=== PATIENT | male | born 1975 | race Caucasian/White ===

== ENCOUNTER 2020-12-24 10:58 | Day surgery (SDC) | payer OTHER ==
[2020-12-20 12:47] VITALS: BMI 32.9
[2020-12-24] MEDS ORDERED: LIDOCAINE HCL/PF 2% SDV 5ML VIAL ONE ×2 (12:15→12:16)
[2020-12-24] MEDS ORDERED: PROPOFOL 20 ML ONE ×2 (12:15)
[2020-12-24 12:48] VITALS: TEMP 97.8
[2020-12-24 13:20] VITALS: BP 109/67; PULSE 68
== END 2020-12-24 13:34 | disposition home or self-care (01) ==
LOC: FASU-ENDO 10:58
PROVIDERS: ATTEND Internal Medicine Gastroenterology
PROC: 0DBL8ZX Excision of Transverse Colon, Via Natural or Artificial Opening Endoscopic, Diagnostic (ICD-10-PCS; 2020-12-24)
PROC: 0DBN8ZX Excision of Sigmoid Colon, Via Natural or Artificial Opening Endoscopic, Diagnostic (ICD-10-PCS; 2020-12-24)
PROC: 0DBP8ZX Excision of Rectum, Via Natural or Artificial Opening Endoscopic, Diagnostic (ICD-10-PCS; 2020-12-24)
PROC: 0DBM8ZX Excision of Descending Colon, Via Natural or Artificial Opening Endoscopic, Diagnostic (ICD-10-PCS; 2020-12-24)
PROC: 0DBK8ZX Excision of Ascending Colon, Via Natural or Artificial Opening Endoscopic, Diagnostic (ICD-10-PCS; principal; 2020-12-24 12:16)
DX: K63.5 Polyp of colon (principal); K64.8 Other hemorrhoids; R19.7 Diarrhea, unspecified
CPT/HCPCS: 88305-TC